=== PATIENT | male | born 1995 | race Caucasian/White ===

== ENCOUNTER 2018-09-20 19:29 | Emergency (ER) | payer SELFPAY ==
[2018-09-20 20:12] VITALS: BP 143/72
--- NOTE | 2018-09-20 21:28 | UC ---
Back Pain HPI - HPI Summary HPI Summary: 22 yo WM presents s/p fall on ice on [employer] parking lot during his break at work, landed on his left lumbar spine, no LOC and no other complaints. - History of Current Complaint Chief Complaint: UCBackPain Stated Complaint: WC - LOW BACK PAIN Time Seen by Provider: 09/20/18 20:10 Hx Obtained From: Patient Hx From Patient Unobtainable Due To: Other Onset/Duration: Sudden Onset Timing: Lasting Hours Severity Initially: Moderate Severity Currently: Moderate Pain Intensity: 5 - Allergies/Home Medications Allergies/Adverse Reactions: Allergies Allergy/AdvReac Type Severity Reaction Status Date / Time No Known Allergies Allergy Verified 09/20/18 20:05 Home Medications: Home Medications ARIPiprazole TAB* [Abilify TAB*] 1 tab QAM 09/20/18 [History Confirmed 09/20/18 ] PMH/Surg Hx/FS Hx/Imm Hx - Surgical History Surgical History: Yes Surgery Procedure, Year, and Place: tubes in ears - Social History Alcohol Use: None Substance Use Type: None Smoking Status (MU): Never Smoked Tobacco - Immunization History Vaccination Up to Date: Yes Review of Systems All Other Systems Reviewed And Are Negative: Yes Constitutional: Positive: Negative Skin: Positive: Negative Eyes: Positive: Negative ENT: Positive: Negative Respiratory: Positive: Negative Cardiovascular: Positive: Negative Gastrointestinal: Positive: Negative Genitourinary: Positive: Negative Motor: Positive: Negative Neurovascular: Positive: Negative Musculoskeletal: Positive: Other: - left lower BP from fall Neurological: Positive: Negative Psychological: Positive: Negative Physical Exam - Summary Physical Exam Summary: Vital Signs Reviewed: Yes Appearance: Positive: Well-Appearing Skin: Positive: Warm Head/Face: Positive: Normal Head/Face Inspection Eyes: Positive: Normal, EOMI, ARPITA ENT: Positive: Normal ENT inspection Neck: Positive: Supple Respiratory/Lung Sounds: Positive: Clear to Auscultation Cardiovascular: Positive: Normal, RRR, S1, S2 Abdomen Positive: Nontender, Soft Musculoskeletal: Positive: LEFT lumbar paraspinal tenderness w/o radiation Neurological: Positive: CN Intact II-XII Psychiatric: Positive: Normal Triage Information Reviewed: Yes Vital Signs: Initial Vital Signs Temp 36.9 C 09/20/18 20:07 Pulse 88 09/20/18 20:07 Resp 18 09/20/18 20:07 BP 143/72 09/20/18 20:07 Pulse Ox 100 09/20/18 20:07 Back Pain Course/Dx - Course Course Of Treatment: XR of lumbar spine- neg for fx, pt's pain improved when during XR imaging and resolved by the time he was d/c'd from - Differential Dx/Diagnosis Provider Diagnosis: Lumbar strain, Fall from slipping on ice Discharge - Sign-Out/Discharge Documenting (check all that apply): Patient Departure All imaging exams completed and their final reports reviewed: Yes - Discharge Plan Condition: Stable Disposition: HOME Patient Education Materials: Low Back Strain (ED) Forms: *Work Release Referrals: Dante Tyson PA [Primary Care Provider] - Additional Instructions: Please follow up with PCP or orthopedics if pain persists for 1-2 weeks - Billing Disposition and Condition Condition: STABLE Disposition: Home
== END 2018-09-20 21:00 | disposition home or self-care (01) ==
LOC: UCCORT 19:29
DX: S39.012A Strain of muscle, fascia and tendon of lower back, initial encounter (principal); W00.0XXA Fall on same level due to ice and snow, initial encounter; Y92.481 Parking lot as the place of occurrence of the external cause
CPT/HCPCS: 72100; 99201; G0463

== ENCOUNTER 2019-06-30 16:29 | Emergency (ER) | payer MEDICAID ==
[2019-06-30 17:04] VITALS: BP 138/83
--- NOTE | 2019-07-26 09:41 | UC ---
General HPI - HPI Summary HPI Summary: rquesting a refill of Abilify 10 mg Rx, appt with PCP 07/13/19 per patient. - History of Current Complaint Chief Complaint: UCMedRefill Stated Complaint: RX REQUEST Time Seen by Provider: 06/30/19 18:12 Hx Obtained From: Patient Onset/Duration: Sudden Onset Timing: Constant Onset Severity: Mild Current Severity: None Pain Intensity: 0 - Allergy/Home Medications Allergies/Adverse Reactions: Allergies Allergy/AdvReac Type Severity Reaction Status Date / Time No Known Allergies Allergy Verified 06/30/19 17:00 Home Medications: Home Medications Sertraline* [Zoloft*] 200 mg PO DAILY 06/30/19 [History Confirmed 06/30/19] PMH/Surg Hx/FS Hx/Imm Hx Previously Healthy: Yes - Surgical History Surgical History: Yes Surgery Procedure, Year, and Place: tubes in ears - Family History Known Family History: Positive: Respiratory Disease - Social History Alcohol Use: None Substance Use Type: None Smoking Status (MU): Never Smoked Tobacco - Immunization History Vaccination Up to Date: Yes Review of Systems All Other Systems Reviewed And Are Negative: Yes Is Patient Immunocompromised?: No Physical Exam Triage Information Reviewed: Yes Appearance: Well-Appearing, No Pain Distress, Well-Nourished Vital Signs: Initial Vital Signs Temp 99.5 F 06/30/19 16:55 Pulse 85 06/30/19 16:55 Resp 16 06/30/19 16:55 BP 138/83 06/30/19 16:55 Pulse Ox 96 06/30/19 16:55 Vital Signs Reviewed: Yes Eye Exam: Normal ENT Exam: Normal Dental Exam: Normal Neck exam: Normal Respiratory Exam: Normal Cardiovascular Exam: Normal Abdominal Exam: Normal Bowel Sounds: Positive: Present Musculoskeletal Exam: Normal Neurological Exam: Normal Psychological Exam: Normal Psychological: Positive: Normal Response To Family, Age Appropriate Behavior - he is calm and has been divideing doses to make it through. no sign of withdrawl symptoms Skin Exam: Normal Course/Dx - Course Course Of Treatment: hx obtained, meds reviewed, prescription given - Diagnoses Provider Diagnosis: Depression Discharge ED - Sign-Out/Discharge Documenting (check all that apply): Patient Departure All imaging exams completed and their final reports reviewed: No Studies - Discharge Plan Condition: Stable Disposition: HOME Prescriptions: ARIPiprazole TAB* [Abilify TAB*] 10 mg PO QAM #30 tab Patient Education Materials: Aripiprazole (By mouth) Referrals: Nilay Mercer MD [Primary Care Provider] - Additional Instructions: 1. I prescribed another 30 days of pills 2. Follow up with Dr. Mercer on 07/11/19. - Billing Disposition and Condition Condition: STABLE Disposition: Home
== END 2019-06-30 18:33 | disposition home or self-care (01) ==
LOC: UCCORT 16:29
DX: F32.9 Major depressive disorder, single episode, unspecified (principal); Z76.0 Encounter for issue of repeat prescription
CPT/HCPCS: 99212; G0463